=== PATIENT | female | born 1980 | race Caucasian/White ===

== ENCOUNTER 2017-10-13 11:55 | Inpatient (IN) | payer MEDICAID ==
[2017-10-13] MEDS: BETAMET NA PHOS/AC(6 MG/ML) 5ML INJ IM (15:24)
[2017-10-13] MEDS: LACTATED RINGER'S 1,000 ML IV ×2 (15:24→20:42)
[2017-10-13 17:27] LABS: ADD UMIC NO; UR ASCORBIC ACID NEGATIVE (NEGATIVE); UR BILIRUBIN (Dip) NEGATIVE (NEGATIVE); UR BLOOD (Dip) NEGATIVE (NEGATIVE); UR CLARITY CLEAR (CLEAR); UR COLOR STRAW (YELLOW); UR GLUCOSE (Dip) NEGATIVE (NEGATIVE); UR KETONES (Dip) 1+ mg/dL (NEGATIVE); UR LEUKOCYTE ESTERASE (Dip) NEGATIVE Leu/ul (NEGATIVE); UR NITRITE (Dip) NEGATIVE (NEGATIVE); UR SPECIFIC GRAVITY (Dip) 1.005 (1.003-1.030); UR TOTAL PROTEIN (Dip) NEGATIVE (NEGATIVE); UR UROBILINOGEN (Dip) NEGATIVE (NEGATIVE)
[2017-10-13] MEDS: CEFAZOLIN 2 GM/50 ML (PMX) 50 ML IVPB (18:07)
[2017-10-14] MEDS: CEFAZOLIN 2 GM/50 ML (PMX) 50 ML IVPB ×3 (00:03→12:07)
[2017-10-14] MEDS: LACTATED RINGER'S 1,000 ML IV ×2 (05:12→14:14)
[2017-10-14] MEDS: BETAMET NA PHOS/AC(6 MG/ML) 5ML INJ IM (14:19)
== END 2017-10-14 15:43 | disposition home or self-care (01) | DRG 778 ==
LOC: OBT 11:55 → L-D 11:58 → OBT 14:44 → PP1 14:40
PROVIDERS: Obstetrics & Gynecology
DX: O60.02 Preterm labor without delivery, second trimester (principal); Z3A.27 27 weeks gestation of pregnancy
CPT/HCPCS: 76817; 76818; 81003; 82731; 87086

== ENCOUNTER 2017-10-21 12:46 | Outpatient (CLI) | payer MEDICAID ==
[2017-10-21 14:59] LABS: RUPTURE FETAL MEMBRANES NEGATIVE (NEGATIVE)
== END 2017-10-21 16:35 | disposition home or self-care (01) ==
LOC: OBT 12:46 → L-D 12:47 → OBT 16:35
DX: O60.03 Preterm labor without delivery, third trimester (principal); Z3A.28 28 weeks gestation of pregnancy
CPT/HCPCS: 76817; 76818; 84112

== ENCOUNTER 2017-10-24 12:29 | Outpatient (CLI) | payer MEDICAID | END 2017-10-24 13:45 | disposition home or self-care (01) | LOC: OBT 12:29 → L-D 12:31 → OBT 13:45 | DX: O36.8120 Decreased fetal movements, second trimester, not applicable or unspecified (principal); Z3A.28 28 weeks gestation of pregnancy | CPT/HCPCS: 76818 ==

== ENCOUNTER 2017-10-28 00:55 | Outpatient (CLI) | payer MEDICAID ==
[2017-10-28 02:08] LABS: ADD UMIC YES; UR ASCORBIC ACID NEGATIVE (NEGATIVE); UR BILIRUBIN (Dip) NEGATIVE (NEGATIVE); UR BLOOD (Dip) NEGATIVE (NEGATIVE); UR CLARITY CLEAR (CLEAR); UR COLOR COLORLESS (YELLOW); UR GLUCOSE (Dip) NEGATIVE (NEGATIVE); UR KETONES (Dip) NEGATIVE (NEGATIVE); UR LEUKOCYTE ESTERASE (Dip) TRACE Leu/ul (NEGATIVE); UR NITRITE (Dip) NEGATIVE (NEGATIVE); UR RBC 0 /HPF (0-5); UR SPECIFIC GRAVITY (Dip) 1.001 (1.003-1.030); UR TOTAL PROTEIN (Dip) NEGATIVE (NEGATIVE); UR UROBILINOGEN (Dip) NEGATIVE (NEGATIVE); UR WBC 1 /HPF (0-5)
[2017-10-28] MEDS: ACETAMINOPHEN 500 MG TAB PO (03:49)
[2017-10-28] MEDS: TERBUTALINE 1 MG/ML INJ SC ×2 (03:49→05:52)
[2017-10-28] MEDS: LACTATED RINGER'S 1,000 ML IV (03:57)
== END 2017-10-28 06:00 | disposition home or self-care (01) ==
LOC: OBT 00:55 → L-D 00:55 → OBT 06:00
DX: O36.8130 Decreased fetal movements, third trimester, not applicable or unspecified (principal); Z3A.29 29 weeks gestation of pregnancy
CPT/HCPCS: 36415; 76817; 76818; 81001; 96360; 96361; 96372

== ENCOUNTER 2017-12-09 22:51 | Outpatient (CLI) | payer MEDICAID ==
[2017-12-10 00:14] LABS: RUPTURE FETAL MEMBRANES NEGATIVE (NEGATIVE)
== END 2017-12-10 02:10 | disposition home or self-care (01) ==
LOC: OBT 22:51 → L-D 22:53
DX: O42.913 Preterm premature rupture of membranes, unspecified as to length of time between rupture and onset of labor, third trimester (principal); O09.523 Supervision of elderly multigravida, third trimester; Z3A.35 35 weeks gestation of pregnancy
CPT/HCPCS: 76818; 84112

== ENCOUNTER 2017-12-30 04:00 | Inpatient (IN) | payer MEDICAID ==
[2017-12-30] MEDS ORDERED: LACTATED RINGER'S 1,000 ML IV (06:39)
[2017-12-30] MEDS ORDERED: CARBOPROST 250 MCG INJ IM ×2 (07:00→12:30)
[2017-12-30] MEDS ORDERED: MISOPROSTOL 200 MCG TAB PR ×2 (07:00→12:30)
[2017-12-30] MEDS ORDERED: IBUPROFEN 600 MG TAB PO (07:00)
[2017-12-30] MEDS ORDERED: METHYLERGONOVINE 0.2 MG INJ IM ×2 (07:00→12:30)
[2017-12-30] MEDS ORDERED: OXYTOCIN 30 UNITS/LR 500 ML IV ×3 (07:00→12:30)
[2017-12-30] MEDS ORDERED: LIDOCAINE 1% (MPF) 30 ML INJ INJ (07:00)
[2017-12-30 08:09] LABS: ADD MAN DIFF? NO
[2017-12-30 08:14] LABS: ABNORMAL IP MESSAGE 1; BASOPHILS % 0.4 % (0.0-2.0); EOSINOPHILS # 0.1 10^3/ul (0.0-0.5); EOSINOPHILS % 0.6 % (0.0-7.0); HEMATOCRIT 38.3 % (37.0-47.0); HEMOGLOBIN 12.7 g/dl (12.0-16.0); LYMPHOCYTES # 1.8 10^3/ul (0.8-2.9); LYMPHOCYTES % 20.4 % (15.0-51.0); MEAN CORPUSCULAR HEMOGLOBIN 31.3 pg (29.0-33.0); MEAN CORPUSCULAR HGB CONC 33.2 g/dl (32.0-37.0); MEAN CORPUSCULAR VOLUME 94.3 fl (82.0-101.0); MONOCYTE # 0.5 10^3/ul (0.3-0.9); MONOCYTES % 5.7 % (0.0-11.0); NEUTROPHIL # 6.5 10^3/ul (1.6-7.5); NEUTROPHILS % 72.5 % (39.0-77.0); PLATELET COUNT 126 10^3/UL (140-415); RED BLOOD COUNT 4.06 10^6/ul (4.20-5.40); RED CELL DISTRIBUTION WIDTH 14.1 % (11.5-14.5)
[2017-12-30 08:17] LABS: MEAN PLATELET VOLUME 13.6 fl (7.4-10.4)
[2017-12-30] MEDS: LACTATED RINGER'S 1,000 ML IV* ×4 (08:19→20:25)
[2017-12-30] MEDS: AMPICILLIN 2 GM/NS (PMX) 100 ML IV (08:19)
[2017-12-30 08:31] LABS: INR 0.83; PARTIAL THROMBOPLASTIN TIME 23.9 Sec (25.0-35.0); PROTIME 11.5 Sec (11.9-14.9); PT RATIO 0.9
[2017-12-30] MEDS: BUTORPHANOL 2 MG INJ IV (09:15)
[2017-12-30] MEDS ORDERED: FENTAnyl 2MCG/ML-ROPIV 0.2% 100 ML BAG EPI (09:30)
[2017-12-30] MEDS ORDERED: NALOXONE (0.4 MG/ML) INJ IV (09:30)
[2017-12-30 09:45] LABS: HEPATITIS B SURFACE ANTIGEN NEGATIVE (NEGATIVE)
[2017-12-30] MEDS: OXYTOCIN 30 UNITS/LR 500 ML IV ×3 (10:40→12:25)
[2017-12-30] MEDS ORDERED: AMPICILLIN 1 GM/NS (PMX) 50 ML IV (11:00)
[2017-12-30] MEDS ORDERED: DIPHENHYDRAMINE 25 MG CAP PO (12:30)
[2017-12-30] MEDS ORDERED: LANOLIN 7 GM TUBE TOP (12:30)
[2017-12-30] MEDS ORDERED: ACETAMINOPHEN 325 MG TAB PO (12:30)
[2017-12-30] MEDS ORDERED: MAGNESIUM HYDROXIDE 30ML CUP PO (12:30)
[2017-12-30] MEDS ORDERED: ZOLPIDEM 5 MG TAB PO (12:30)
[2017-12-30] MEDS ORDERED: HYDROCODONE/APAP (5/325) TAB PO (12:30)
[2017-12-30] MEDS ORDERED: WITCH HAZEL/GLYCERIN PAD PR (12:30)
[2017-12-30] MEDS ORDERED: BENZOCAINE 20% 56 ML SPRAY TOP (12:30)
[2017-12-30] MEDS: IBUPROFEN 800 MG TAB PO (18:04)
[2017-12-30 21:00] LABS: RAPID PLASMA REAGIN NONREACTIVE (NR)
[2017-12-31] MEDS: IBUPROFEN 800 MG TAB PO ×5 (00:21→23:41)
[2017-12-31 07:44] LABS: ADD MAN DIFF? NO
[2017-12-31 07:49] LABS: WHITE BLOOD COUNT 8.9 10^3/ul (4.8-10.8)
[2017-12-31 07:49] LABS: ABNORMAL IP MESSAGE 1; BASOPHILS % 0.3 % (0.0-2.0); EOSINOPHILS # 0.1 10^3/ul (0.0-0.5); EOSINOPHILS % 1.5 % (0.0-7.0); HEMATOCRIT 33.5 % (37.0-47.0); HEMOGLOBIN 10.9 g/dl (12.0-16.0); LYMPHOCYTES # 2.1 10^3/ul (0.8-2.9); LYMPHOCYTES % 23.9 % (15.0-51.0); MEAN CORPUSCULAR HEMOGLOBIN 31.1 pg (29.0-33.0); MEAN CORPUSCULAR HGB CONC 32.5 g/dl (32.0-37.0); MEAN CORPUSCULAR VOLUME 95.7 fl (82.0-101.0); MEAN PLATELET VOLUME 13.1 fl (7.4-10.4); MONOCYTE # 0.6 10^3/ul (0.3-0.9); MONOCYTES % 6.8 % (0.0-11.0); NEUTROPHILS % 67.1 % (39.0-77.0); PLATELET COUNT 110 10^3/UL (140-415); RED CELL DISTRIBUTION WIDTH 14.5 % (11.5-14.5)
[2017-12-31 08:01] LABS: POSITIVE DIFF @See below
[2017-12-31] MEDS: SENNA/DOCUSATE NA (8.6MG/50MG) TAB PO (21:37)
[2018-01-01] MEDS: IBUPROFEN 800 MG TAB PO ×2 (05:30→11:30)
[2018-01-01] MEDS: VARICELLA VACCINE LIVE/PF 1,350 UNIT/0.5 ML ML SC* (09:00)
[2018-01-01] MEDS: DIPHTH/TET/ACEL PERTUSS (ADULT) 0.5 ML VIAL IM* (10:16)
[2018-01-01] MEDS: MEASLES,MUMPS,RUBELLA VACCINE INJ SC* (11:31)
== END 2018-01-01 13:25 | disposition home or self-care (01) | DRG 775 ==
LOC: OBT 04:00 → L-D 04:00 → OBT 06:35 → L-D 06:35 → PP1 11:47
PROVIDERS: Obstetrics & Gynecology
PROC: 10E0XZZ Delivery of Products of Conception, External Approach (ICD-10-PCS; principal; 2017-12-30)
PROC: 3E0234Z Introduction of Serum, Toxoid and Vaccine into Muscle, Percutaneous Approach (ICD-10-PCS; 2018-01-01)
DX: O80 Encounter for full-term uncomplicated delivery (principal); Z3A.38 38 weeks gestation of pregnancy; Z37.0 Single live birth; Z23 Encounter for immunization
CPT/HCPCS: 36415; 62319; 76815; 76818; 85025; 85610; 85730; 86592; 86850; 86900; 86901; 87340; 90715; 90716